=== PATIENT | male | born 1995 | race Asian ===

== ENCOUNTER 2018-04-01 06:50 | Emergency (ER) | payer OTHER ==
[~2018-04-01] VITALS: Ht 177.8 cm; Wt 74.0 kg
[2018-04-01 06:52] VITALS: TEMP 36.9; Ht 177.8 cm; Wt 74.0 kg
[2018-04-01] MEDS ORDERED: ONDANSETRON INJ 2 MG/ML 2 ML VIAL IV STA (07:11)
[2018-04-01 07:24] VITALS: O2SAT 97
[2018-04-01 07:28] LABS: BASO % 0.7 %; BASO ABS # 0.04 K/uL (0-0.2); EOS % 3.1 %; EOS ABS # 0.19 K/uL (0-0.5); IG# 0.01 K/uL (0.00-0.02); LYMPH % 43.5 %; LYMPH ABS # 2.67 K/uL (1.2-3.4); MEAN CELL VOLUME 84.4 fL (80-100); MEAN CORPUSCULAR HGB CONC 35.6 g/dl (32-36); MEAN PLATELET VOLUME 9.2 fL (7.4-10.4); MONO % 7.8 %; MONO ABS # 0.48 K/uL (0.11-0.59); NEUT % 44.7 %; NEUT ABS # 2.75 K/uL (1.4-6.5); PLATELET COUNT 235 K/uL (130-400); RED CELL DISTRIBUTION WIDTH SD 36.8 fL (36.4-46.3); WHITE BLOOD COUNT 6.14 K/uL (4.8-10.8)
--- NOTE | 2018-04-01 07:28 | DIAGNOSTIC IMAGING REPORT ---
CHEST ONE VIEW PORTABLE CLINICAL HISTORY: Atypical chest pain COMPARISON STUDY: No previous studies for comparison. FINDINGS: The cardiac and mediastinal contours are normal. There is no evidence of focal pulmonary consolidation. There is no evidence of failure. No pleural effusions are visualized.[ IMPRESSION: No active disease in the chest. Electronically signed by: Corbin Lindsey M.D. 04/01/2018 7:27 AM Dictated Date/Time: 04/01/2018 7:27 AM
[2018-04-01] MEDS ORDERED: ALBUT/IPRATROP 3MG/0.5MG NEB 3 ML VIAL INH STA (07:45)
[2018-04-01 07:48] LABS: CALCIUM 8.9 mg/dl (8.5-10.1); CREATININE 1.1 mg/dl (0.60-1.40); POTASSIUM 3.6 mmol/L (3.5-5.1); TOTAL PROTEIN 7.5 gm/dl (6.4-8.2)
[2018-04-01 08:23] LABS: PTT PATIENT 27.1 SECONDS (21.0-31.0)
[2018-04-01] MEDS ORDERED: ALBUTEROL HFA 8 GM INHALER INH ONE (09:45)
[2018-04-01 09:57] VITALS: BP 113/67; PULSE 60; O2SAT 98
--- NOTE | 2018-04-01 17:35 | EMERGENCY ROOM VISIT NOTE ---
History First contact with patient: 07:03 Chief Complaint: SHORTNESS OF BREATH Stated Complaint: FEELS LIKE SOMETHING IN THROAT,DIFFICULTY BREATHIN Nursing Triage Summary: Pt c/o chest pain and SOB that started at 5 am today. Reports 3 weeks ago he traveled from [place] to [place]. Pt is a smoker and states he has a cough, says smoking makes chest pain worse. Denies history of similar symptoms. +nausea. History of Present Illness The patient is a 22 year old male who presents to the Emergency Room with complaints of left-sided chest pain, shortness of breath and sore throat. The patient reports that his pain was noticeable at 5 AM this morning. The patient reports that he did have some left-sided chest discomfort last evening as well. The patient reports that he has been smoking a lot lately. He does report using gummies with THC, and does occasionally smoke marijuana. He denies any other illicit drug use. The patient denies any recent upper respiratory infections, and currently denies any runny nose, sinus congestion, fever or chills. The patient reports that his chest pain is worsened with deep breathing. He denies any hematemesis or hemoptysis. Patient does report feeling nauseated. He currently rates his discomfort a 2 out of 10 on my exam. Review of Systems HEENT: Denies dizziness, visual problems, hearing loss, tinnitus. Denies difficulty swallowing or oral lesions. PULMONARY: Denies sputum production or hemoptysis, otherwise see HPI CARDIOVASCULAR: Denies palpitations, dyspnea on exertion, orthopnea or peripheral edema. GASTROINTESTINAL: Denies diarrhea, constipation, vomiting or abdominal pain. GENITOURINARY: Denies dysuria, frequency, urgency or nocturia. NEUROLOGIC: Denies history of epilepsy, CVA, TIA or chronic headaches. MUSCULOSKELETAL: Denies history of joint tenderness/swelling. SKIN: Denies rashes or lesions. PSYCHIATRIC: Denies history of depression or mental illness. ENDOCRINE: Denies history of diabetes or thyroid disorders. Past Medical/Surgical History Medical Problems: (1) No significant past medical history Surgical Problems: (1) No history of previous surgery Family History Unremarkable Social History Smoking Status: Current Every Day Smoker Alcohol Use: none Marital Status: single Occupation Status: employed, [employer] student Current/Historical Medications No Active Prescriptions or Reported Meds Physical Exam Vital Signs Date Time Temp Pulse Resp B/P (MAP) Pulse Ox O2 Delivery O2 Flow Rate FiO2 04/01/18 09:57 60 18 113/67 98 04/01/18 09:27 63 18 113/67 97 Room Air 04/01/18 08:07 61 17 116/63 99 Room Air 04/01/18 07:24 97 Room Air 04/01/18 07:08 64 04/01/18 07:02 Room Air 04/01/18 06:52 36.9 80 18 131/83 99 Room Air Physical Exam CONSTITUTIONAL: Healthy and well nourished. Alert and oriented X 3. PSYCHIATRIC: The patient appears somewhat anxious. HEENT: Normocephalic, atraumatic. Pupils equal, round and reactive. Ears and nares are clear. OROPHARYNX: The patient has generalized posterior pharyngeal erythema without tonsillar hypertrophy or exudates. NECK: Full active range of motion without discomfort. No JVD or carotid bruit. No nuchal rigidity. RESPIRATORY: Clear to auscultation bilaterally with no wheezing, crackles, rhonchi or stridor. The breathing does seem to cause some mild discomfort. CARDIOVASCULAR: Regular rate and rhythm with no murmurs, rubs or gallops. GASTROINTESTINAL: Bowel sounds present in all quadrants. Soft and nontender to palpation. No epigastric tenderness to palpation, Fernandez sign or CVA tenderness. MUSCULOSKELETAL: Full range of motion of all joints without discomfort. INTEGUMENTARY: No rash or other significant dermatologic conditions noted. HEMATOLOGIC: No ecchymosis or petechiae. NEUROLOGIC: No focal neurologic deficits noted. Medical Decision & Procedures ER Provider Diagnostic Interpretation: My interpretation of an initial ECG shows a normal sinus rhythm of [address] elevation or other conduction abnormalities. My interpretation of a portable chest x-ray does not show any consolidations or pneumothorax. Radiologist report is as follows: CHEST ONE VIEW PORTABLE CLINICAL HISTORY: Atypical chest pain COMPARISON STUDY: No previous studies for comparison. FINDINGS: The cardiac and mediastinal contours are normal. There is no evidence of focal pulmonary consolidation. There is no evidence of failure. No pleural effusions are visualized.[ IMPRESSION: No active disease in the chest. Laboratory Results 04/01/18 07:20 Red Blood Count 5.33, Mean Corpuscular Volume 84.4, Mean Corpuscular Hemoglobin 30.0, Mean Corpuscular Hemoglobin Concent 35.6, Mean Platelet Volume 9.2, Neutrophils (%) (Auto) 44.7, Lymphocytes (%) (Auto) 43.5, Monocytes (%) (Auto) 7.8, Eosinophils (%) (Auto) 3.1, Basophils (%) (Auto) 0.7, Neutrophils # (Auto) 2.75, Lymphocytes # (Auto) 2.67, Monocytes # (Auto) 0.48, Eosinophils # (Auto) 0.19, Basophils # (Auto) 0.04 04/01/18 07:20 Test 04/01/18 07:20 04/01/18 08:30 White Blood Count 6.14 K/uL (4.8-10.8) Red Blood Count 5.33 M/uL (4.7-6.1) Hemoglobin 16.0 g/dL (14.0-18.0) Hematocrit 45.0 % (42-52) Mean Corpuscular Volume 84.4 fL (80-100) Mean Corpuscular Hemoglobin 30.0 pg (25-34) Mean Corpuscular Hemoglobin Concent 35.6 g/dl (32-36) Platelet Count 235 K/uL (130-400) Mean Platelet Volume 9.2 fL (7.4-10.4) Neutrophils (%) (Auto) 44.7 % Lymphocytes (%) (Auto) 43.5 % Monocytes (%) (Auto) 7.8 % Eosinophils (%) (Auto) 3.1 % Basophils (%) (Auto) 0.7 % Neutrophils # (Auto) 2.75 K/uL (1.4-6.5) Lymphocytes # (Auto) 2.67 K/uL (1.2-3.4) Monocytes # (Auto) 0.48 K/uL (0.11-0.59) Eosinophils # (Auto) 0.19 K/uL (0-0.5) Basophils # (Auto) 0.04 K/uL (0-0.2) RDW Standard Deviation 36.8 fL (36.4-46.3) RDW Coefficient of Variation 12.0 % (11.5-14.5) Immature Granulocyte % (Auto) 0.2 % Immature Granulocyte # (Auto) 0.01 K/uL (0.00-0.02) Prothrombin Time 10.0 SECONDS (9.0-12.0) Prothromb Time International Ratio 1.0 (0.9-1.1) Activated Partial Thromboplast Time 27.1 SECONDS (21.0-31.0) Partial Thromboplastin Ratio 1.0 D-Dimer 280 ug/L FEU (0-500) Anion Gap 10.0 mmol/L (3-11) Est Creatinine Clear Calc Drug Dose 107.8 ml/min Estimated GFR () 109.1 Estimated GFR (Non- 94.1 BUN/Creatinine Ratio 12.2 (10-20) Calcium Level 8.9 mg/dl (8.5-10.1) Total Bilirubin 0.3 mg/dl (0.2-1) Direct Bilirubin 0.1 mg/dl (0-0.2) Aspartate Amino Transf (AST/SGOT) 20 U/L (15-37) Alanine Aminotransferase (ALT/SGPT) 30 U/L (12-78) Alkaline Phosphatase 89 U/L (45-117) Total Creatine Kinase 77 U/L (39-308) Troponin I 0.025 ng/ml (0-0.045) Total Protein 7.5 gm/dl (6.4-8.2) Albumin 4.0 gm/dl (3.4-5.0) Lipase 204 U/L (73-393) Urine Opiates Screen NEG (NEG) Urine Methadone, Qualitative NEG (NEG) Urine Barbiturates NEG (NEG) Urine Phencyclidine (PCP) Level NEG (NEG) Ur Amphetamine/Methamphetamine NEG (NEG) MDMA (Ecstasy) Screen NEG (NEG) Urine Benzodiazepines Screen NEG (NEG) Urine Cocaine Metabolite NEG (NEG) Urine Marijuana (THC) POS (NEG) The above labs were reviewed and were grossly normal. Urine THC is positive. Medications Administered Medications (Trade) Dose Ordered Sig/Sylvester Route Start Time Stop Time Status Last Admin Dose Admin Ondansetron HCl (Zofran Inj) 4 mg NOW STAT IV 04/01/18 07:11 04/01/18 07:14 DC 04/01/18 07:24 4 MG Albuterol/ Ipratropium (Duoneb) 3 ml NOW STAT INH 04/01/18 07:45 8/27/18 07:46 DC 04/01/18 07:54 3 ML Albuterol (Ventolin Hfa Inhaler) 2 puffs NOW ONCE INH 04/01/18 09:45 04/01/18 09:46 DC 04/01/18 09:55 2 PUFFS ED Course Patient history and physical exam were performed. Nurse's notes were reviewed. Vital signs were reviewed and were normal. IV access was established, and labs were drawn. Patient was administered Zofran 4 mg IVP with complaints of nausea. ECG and portable chest x-ray were normal. Review of labs did not show any acute findings, including a normal d-dimer and troponin. Urine THC is positive, consistent with the patient's history of THC use. Findings were discussed with the patient. I did encourage him to follow-up with [facility] if symptoms persist. I did encourage him to refrain from smoking and THC use. I also explained that he is at high risk for additional illicit drug contact with his activities. The patient voiced understanding, and reported that he would stop THC use. The patient was happy with plan of care, and voiced understanding of all discharge instructions. Medical Decision I suspect the patient's symptoms are likely secondary to a viral upper respiratory infection. It is possible that he is having a reaction to THC use. His workup today is not suggestive of pulmonary embolus, myocardial infarction , pneumonia, pneumothorax or other acute cardiopulmonary etiologies. [place] Drug Monitoring Program Search Results: patient reviewed within database Medication Reconcilliation Current Medication List: was personally reviewed by me Blood Pressure Screening Patient's blood pressure: Normal blood pressure Impression Primary Impression: Viral URI Departure Information Prescriptions No Active Prescriptions or Reported Meds Referrals No Doctor, Assigned (PCP) Patient Instructions My [facility]
== END 2018-04-01 09:58 | disposition home or self-care (01) ==
LOC: C.EDB 06:51
DX: J06.9 Acute upper respiratory infection, unspecified (principal); F17.210 Nicotine dependence, cigarettes, uncomplicated; F12.90 Cannabis use, unspecified, uncomplicated